=== PATIENT | female | born 1980 | race Caucasian/White ===

== ENCOUNTER 2017-09-04 10:13 | Observation (INO) | payer OTHER ==
[2017-09-04] MEDS ORDERED: PREN-134 PO (21:04)
== END 2017-09-04 11:30 | disposition home or self-care (01) ==
LOC: 4S 10:13
PROVIDERS: ADMIT Obstetrics & Gynecology; ATTEND Obstetrics & Gynecology
DX: O62.9 Abnormality of forces of labor, unspecified (principal); O26.893 Other specified pregnancy related conditions, third trimester; O48.0 Post-term pregnancy; R10.9 Unspecified abdominal pain; Z3A.40 40 weeks gestation of pregnancy
CPT/HCPCS: 59025; G0378

== ENCOUNTER 2017-09-04 20:32 | Inpatient (IN) | payer OTHER ==
[~2017-09-04] VITALS: Ht 163 cm; Wt 69.4 kg
[2017-09-04 21:02] VITALS: BP 120/85
[2017-09-04] MEDS ORDERED: PREN-134 PO (21:04)
[2017-09-04] MEDS ORDERED: CITRIC ACID/SODIUM CITRATE 30 ML SOLUTION UDCUP PO PRN (21:15)
[2017-09-04] MEDS ORDERED: AMPICILLIN SODIUM 2 GM/NS 100 ML IV ONE (21:15)
[2017-09-04] MEDS ORDERED: METOCLOPRAMIDE HCL 5 MG/ML 2 ML VIAL IVP PRN (21:15)
[2017-09-04] MEDS ORDERED: TERBUTALINE SULFATE 1 MG/ML VIAL SQ PRN (21:15)
[2017-09-04] MEDS: RINGERS SOLUTION,LACTATED 1,000 ML IV SCH (21:27)
[2017-09-04 21:48] LABS: BASOPHILS % (AUTO) 0.1 % (0.0-2.0); EOSINOPHILS % (AUTO) 0.3 % (1.0-6.0); HEMATOCRIT 37.9 % (36-46); HEMOGLOBIN 12.7 g/dL (12.0-16.0); LYMPHOCYTES % (AUTO) 5.7 % (22.0-44.0); MEAN CORPUSCULAR HEMOGLOBIN 30.4 pg (26.0-34.0); MEAN CORPUSCULAR HGB CONC 33.6 G/dL (31.0-37.0); MEAN CORPUSCULAR VOLUME 91 fL (80-100); MONOCYTES # (AUTO) 0.8 K/uL (0.1-1.0); MONOCYTES % (AUTO) 4.4 % (2.0-9.0); NEUTROPHILS # (AUTO) 15.9 K/uL (1.8-7.7); RED BLOOD CELL COUNT(AUTO) 4.18 MIL/uL (4.00-5.20); RED CELL DISTRIBUTION WIDTH 13.6 % (11.5-14.5); WHITE BLOOD COUNT (AUTO) 17.8 K/uL (4.5-11.0)
[2017-09-04 21:53] LABS: NEUTROPHILS % (AUTO) 89.5 % (40.0-70.0)
[2017-09-04] MEDS ORDERED: ROPIVACAINE HCL 0.2% 100 ML ED ONE (22:42)
[2017-09-05] MEDS: AMPICILLIN SODIUM 1 GM/NS 50 ML IV SCH ×3 (01:13→09:10)
[2017-09-05 01:33] LABS: GLUCOSE COMMENT 1 Repeated; GLUCOSE,POINT OF CARE 110 MG/DL (70-110)
[2017-09-05] MEDS ORDERED: OXYTOCIN 30 UNITS/LACT RINGERS 500 ML IV PRN (03:00)
[2017-09-05] MEDS: RINGERS SOLUTION,LACTATED 1,000 ML IV SCH ×2 (03:25→07:29)
[2017-09-05] MEDS ORDERED: ROPIVACAINE HCL 0.2% 100 ML ED ONE (06:21)
[2017-09-05] MEDS ORDERED: MIDAZOLAM HCL 2 MG/2 ML VIAL ONE (09:39)
[2017-09-05] MEDS ORDERED: FentaNYL CITRATE-PF 100 MCG/2 ML VIAL ONE (09:39)
[2017-09-05] MEDS ORDERED: MORPHINE SULFATE/PF 0.5 MG/ML 10 ML AMP ONE (09:39)
[2017-09-05] MEDS ORDERED: DiphenhydrAMINE HCL 50 MG/ML VIAL IVP PRN ×2 (10:30)
[2017-09-05] MEDS ORDERED: FentaNYL CITRATE-PF 100 MCG/2 ML VIAL IVP PRN ×2 (10:30)
[2017-09-05] MEDS ORDERED: MORPHINE SULFATE 2 MG/ML SYRINGE IVP PRN (10:30)
[2017-09-05] MEDS ORDERED: OXYGEN THERAPY IH SCH ×2 (10:30)
[2017-09-05] MEDS ORDERED: ONDANSETRON HCL 4 MG/2 ML VIAL IVP PRN ×2 (10:30)
[2017-09-05] MEDS ORDERED: MORPHINE SULFATE 4 MG/ML SYRINGE IVP PRN (10:30)
[2017-09-05] MEDS ORDERED: LIDOCAINE HCL 2%/EPI 1:200,000/PF 20 ML VIAL ONE (10:42)
[2017-09-05] MEDS ORDERED: ACETAMINOPHEN 1000 MG/ISO-OSM 100 ML IV ONE (10:42)
[2017-09-05] MEDS ORDERED: LANOLIN 7 GM OINTMENT TP PRN (10:45)
[2017-09-05] MEDS ORDERED: ACETAMINOPHEN/CODEINE 300-30 MG TABLET PO PRN (10:45)
[2017-09-05] MEDS: ACETAMINOPHEN 1000 MG/ISO-OSM 100 ML IV SCH ×2 (10:57→18:45)
[2017-09-05] MEDS ORDERED: ONDANSETRON HCL 4 MG/2 ML VIAL IVP ONE (12:00)
[2017-09-05] MEDS ORDERED: EPHEDrine SULFATE 50 MG/ML VIAL IM ONE (12:00)
[2017-09-05] MEDS ORDERED: OXYTOCIN 10 UNITS/ML 10 ML VIAL IV ONE (12:00)
[2017-09-05] MEDS ORDERED: DEXAMETHASONE SOD PHOS 4 MG/ML VIAL IVP ONE (12:00)
[2017-09-05] MEDS ORDERED: GENTAMICIN SULFATE 160 MG in DEXTROSE 5%-WATER 50 ML IV ONE (12:00)
[2017-09-05] MEDS: NALBUPHINE HCL 10 MG/ML VIAL IVP SCH ×2 (15:03→21:07)
[2017-09-05] MEDS: DEXTROSE 5%-0.45% SODIUM CHL 1,000 ML IV SCH ×2 (16:12→19:58)
[2017-09-06] MEDS: DEXTROSE 5%-0.45% SODIUM CHL 1,000 ML IV SCH ×2 (00:09→03:01)
[2017-09-06] MEDS: NALBUPHINE HCL 10 MG/ML VIAL IVP SCH (02:54)
[2017-09-06] MEDS: ACETAMINOPHEN 1000 MG/ISO-OSM 100 ML IV SCH (03:00)
[2017-09-06] MEDS: IBUPROFEN 800 MG TABLET PO SCH ×4 (04:16→21:51)
[2017-09-06] MEDS: LEVOTHYROXINE SODIUM 50 MCG TABLET PO SCH (07:53)
[2017-09-06] MEDS: MAGNESIUM HYDROXIDE SUSPENSION 30 ML UDCUP PO SCH ×2 (10:10→21:41)
[2017-09-07] MEDS: IBUPROFEN 800 MG TABLET PO SCH ×3 (05:01→17:54)
[2017-09-07] MEDS: LEVOTHYROXINE SODIUM 50 MCG TABLET PO SCH (07:24)
[2017-09-07] MEDS: ACETAMINOPHEN/CODEINE 300-30 MG TABLET PO PRN ×2 (08:13→16:13)
[2017-09-07] MEDS: MAGNESIUM HYDROXIDE SUSPENSION 30 ML UDCUP PO SCH ×2 (08:13→20:21)
[2017-09-08] MEDS: IBUPROFEN 800 MG TABLET PO SCH ×2 (01:14→04:00)
[2017-09-08] MEDS: LEVOTHYROXINE SODIUM 50 MCG TABLET PO SCH (06:13)
[2017-09-08] MEDS ORDERED: IBUP-2071 PO (10:59)
== END 2017-09-08 13:15 | disposition home or self-care (01) | DRG 766 ==
LOC: OBSVTOIN 20:32 → 4S 20:32 → UNDODISIN 21:35 → 4S 09-05 13:09
PROVIDERS: ADMIT Obstetrics & Gynecology; ATTEND Obstetrics & Gynecology
PROC: 10D00Z1 Extraction of Products of Conception, Low, Open Approach (ICD-10-PCS; principal; 2017-09-05)
DX: O33.9 Maternal care for disproportion, unspecified (principal); O61.9 Failed induction of labor, unspecified; O77.0 Labor and delivery complicated by meconium in amniotic fluid; Z37.0 Single live birth; Z3A.40 40 weeks gestation of pregnancy
CPT/HCPCS: 82962; 84443; 86850; 86900; 86901; J0131; J0290; J0690; J1100; J1580; J2250; J2274; J2300; J2405; J2590; J2765; J2795; J3010; J3490; J7060; J7120